=== PATIENT | female | born 1980 | race Caucasian/White ===

== ENCOUNTER 2021-09-22 12:58 | Emergency (ER) | payer OTHER ==
[~2021-09-22] VITALS: Ht 162.6 cm; Wt 83.9 kg
[2021-09-22 13:04] VITALS: BP 155/93
[2021-09-22] MEDS ORDERED: IBUPROFEN 600 MG TAB PO ONE (13:10)
[2021-09-22] MEDS ORDERED: ACETAMINOPHEN EXTRA STRENGTH 500 MG TAB PO ONE (13:10)
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
[2021-09-22] MEDS ORDERED: ONDANSETRON 4 MG ODT PO ONE (13:15)
--- NOTE | 2021-09-22 13:48 | NUR ---
CONSENT OBTAINED FOR CT
--- NOTE | 2021-09-22 14:16 | NUR ---
PT AMBULATED TO BATHROOM AT THIS TIME
[2021-09-22] MEDS ORDERED: IBUP-2213 PO (15:26)
[2021-09-22 15:39] VITALS: BP 155/93
--- NOTE | 2021-09-22 15:39 | NUR ---
Patient discharged with v/s stable. Written and verbal after care instructions given and explained. Patient alert, oriented and verbalized understanding of instructions. Ambulatory with steady gait. All questions addressed prior to discharge. ID band removed. Patient advised to follow up with PMD. Rx of IBUPROFEN (SENT) given. Patient educated on indication of medication including possible reaction and side effects. Opportunity to ask questions provided and answered.
== END 2021-09-22 15:39 | disposition home or self-care (01) ==
LOC: MED 13:20
DX: S30.1XXA Contusion of abdominal wall, initial encounter (principal); Z79.899 Other long term (current) drug therapy; V89.2XXA Person injured in unspecified motor-vehicle accident, traffic, initial encounter; Y93.89 Activity, other specified; Y92.89 Other specified places as the place of occurrence of the external cause; Y99.8 Other external cause status
CPT/HCPCS: 71260; 74177; 99285; Q0162; Q9967